=== PATIENT | female | born 1990 | race Caucasian/White ===

== ENCOUNTER → 2022-09-16 15:27 | Outpatient (BNVA) | payer BC, SELFPAY | PROVIDERS: Visit Provider Physician Assistant Surgical ==

== ENCOUNTER 2022-12-24 10:56 | Outpatient (AMB) | payer OTHER, SELFPAY ==
--- NOTE | 2022-12-24 11:04 | A.OFFVIS_ITS ---
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 She heard about our program from online search. Her goal is to lose weight and achieve a healthy lifestyle. She reports first being concerned about her weight about 5 years ago, highest weight to date was 270. Current weight is 270 pounds with a BMI of 46.4. She has tried multiple methods of weight loss including fad diets and OTC diet pills without permanent results. She lives alone. 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 She wakes at:?930 am, and goes to bed at?2 am. Dinner is at 7-8 pm. Working at 3-11 pm Breakfast: spinach fajita AM snack: watermelon Lunch: zucchini and pasta PM snack: skip Dinner: chicken breast on salad After dinner: none Other snacks: popcorn Liquids: 64-80 oz water, 1-2 cans soda per month, no juice Alcohol/marijuana/tobacco intake: no etoh, no cannabis, no tobacco Exercise: little exercise, walking 1 mile outside or workout videos at home. no gym membership or home equipment. Could join a gym. GERD score: 1 JIMENEZ score: 1 ESS score: 7 QOL score: 108 PFSH Surgical History No pertinent past surgical history Family History Mother Multiple sclerosis Father No problems noted. Sister No problems noted. Social History Alcohol intake: current Alcohol intake frequency: holidays/special occasions only Patient Tobacco Use Status: Never used Tobacco Review of Systems Const All systems reviewed & are unremarkable except as noted in HPI and below Physical Exam Vital Signs: Last Vital Signs Temp 97.7 F 12/24/22 11:05 Pulse 72 12/24/22 11:05 BP 173/99 H 12/24/22 11:05 Pulse Ox 97 12/24/22 11:05 Oxygen Delivery Method Room Air 12/24/22 11:05 BMI result Body Mass Index 46.3 Const General: cooperative, healthy appearing and no acute distress Orientation/consciousness: patient oriented x3 HEENT Head: Yes normal to inspection Ears: hearing grossly normal bilaterally General nose exam: Normal external nose present Face and sinus: Yes normal facial exam Eyes General: appearance normal, both eyes and all related structures Resp Effort & Inspection: normal respiratory effort Auscultation: clear to auscultation bilaterally Cardio Rate: regular rate Rhythm: regular rhythm Heart sounds: S1 normal heart sound present and S2 normal heart sound present GI Inspection: Yes normal to inspection, No distended and Yes obesity Palpation (GI): Soft to palpation, nontender and no guarding Auscultation: normal bowel sounds Skin General skin exam: no rashes or lesions noted Neuro General: patient oriented x3 Extrem General: No edema Psych Appearance: grossly normal Mental Status: mental status grossly normal Speech and movement: Normal speech and movement present Affect: normal affect Attitude: cooperative Assessment & Plan Assessment & Plan (1) Morbid obesity: Code(s): E66.01 - Morbid (severe) obesity due to excess calories Plan: This is a?[] yo [] who will start our SWL program to prepare for bariatric surgery.? Blood work, h pylori , CXR, ECG, Abd US and UGI have been ordered. She is being scheduled for RD and BH initial consultations. She will start SWL classes and watch the first three videos before her next appointment. ? Adequate sleep of 7-8 hours per night discussed ? Purchase body composition analyzer scale (Yani cristina or Alanna recommended) and check weight weekly. The best time to do this is first thing in the morning after going to the bathroom. 1. Nutritional counseling: Be sure to careful read the number of scoops per shake Start with 1 Celebrate Rebuild shake ([facility] Exabre or [employer]), (2 scoops in 20 oz low fat unsweetened almond milk) at 1030am- 1230pm 1 protein bar (Celebrate protein bars at [facility] Oxsensis or [employer]) at 230pm-430pm. Dinner at 7pm (10 forks of protein and 10 forks of salad/vegetables). Meal to include lean meat (beef, fish, pork, turkey, chicken), cooked vegetables or a salad with olive oil and/or fruits (berries, pears, apples, kiwi). Avoid salt, breads, potatoes, rice, pasta, desserts. Another bar at 1030pm-1230am. Try to drink 64 oz of water daily and avoid soda and juices. ?2. Each shake would be drunk slowly, like coffee in a period of 2 hours. ?3. Cut each bar in 4 pieces and eat each piece in 30 min ?to make each bar last 2 hours. ?4. I emphasized the importance of measuring accurately the food portion and measure it carefully when serving the food on the plate ?5. The meal portions include 10 full-size forks of meat and 10 full-size forks of salad. You always eat the meat portion but you can replace up to half of the forks of salad/vegetables with rice, potatoes or pasta, or a fruit ?if you like. The less you do it the better weight loss will be. ?6. One full-size fork is what can be scooped on the fork without falling aside and not what can be bit with the fork. Use regular forks like those you find in a typical restaurant. ?7.? Please send me weight measurements as soon as possible and then once a week. Always include your diet and exercise plan. Alternatively come weekly at the office for weight checks and send me the measurements. ?8. Exercise counseling: Begin by watching a stretching for beginners video. Start slowly and begin to stretch your muscles. You should do this before and after each exercise session to prevent injury. Please join [facility] gym near your home. Ask the probation manager or one of the trainers how to use the machines if you are unfamiliar with them. Start elliptical with a resistance of 2. Increase resistance by 1 every 3 min to your most comfortable resistance with a max resistance of 8. Reduce the resistance by 1 every 3 minutes back down to 2 and repeat cycles for 300 calories. Alternatively, start treadmill with a speed of 3.0 and incline of 0, increasing incline by 1 every 3 minutes to the highest comfortable level (max 6 for now) then decrease in the same fashion. Repeat process to a goal of 300 calories. Goal of 2000 calories burned or more weekly. You may also consider use of the stationary bike. The easiest would be to chose the fat-burn or interval training program on the machine and do this until you reach the 300 calorie goal. Alternatively, you can manually adjust the resistance in a similar fashion as mentioned above, (resistance of 2-8 with a goal speed of 12 mph). Tracking calories is essential. 9. Alternatively start walking outside daily, tracking calories with a goal of 300 calories per day, daily. You can download the adam [employer]ent [employer] which can track your time, distance and calories while walking outside. You press start in the adam when you start and then stop when you are finished. 10.? It is important to avoid for at least 18 months postoperatively and it has been discussed at the information session 11. Please get labs, EKG and chest X-Ray within 1 week. 12. Discussed and answered all questions regarding?obtained consent to participate in the [place] [facility]ariatric?Registry. 13. Please follow the diet plan exactly, without any change. If you do not like something about the plan or you feel hungry, you need to communicate with me so I can help you revise the plan. You should not change the plan yourself. Text me at [phone] 14. Goal is to lose at least 12 pounds in the first month 15. Goal is to lose 10% of your weight before surgery, which is about 27 lbs. Ultimate weight goal: 243 lbs before surgery 10:30 - 12:30 Powdered - Celebrate Rebuilt - Chocolate: 2.00 scoop (Mix with 20.29 oz of Mcclellan milk) 25.0 2 14:30 - 16:30 Bar - Zone Perfect - Fudge Nicanor: 1.00 piece 14.0 3 18:30 - 20:30 5.12 oz (10 forkfuls) beef/chicken/lynn/pork/fish/tofu and 5.12 oz (10 forkfuls) of salad. 33.9 4 22:30 - 00:30 [facility]: 1.00 piece 14.0 Patient is morbidly obese and is not considered stable at this time.?I spent a total of 70 minutes reviewing/updating records, examining the patient and counseling the patient on weight management as detailed above. Orders: Orders IRON PROFILE Today E66.01 - Morbid (severe) obesity due to excess calories Complete Blood Count Auto Diff Today E66.01 - Morbid (severe) obesity due to excess calories Vitamin B12 and Folate Today E66.01 - Morbid (severe) obesity due to excess calories Zinc Today E66.01 - Morbid (severe) obesity due to excess calories Comprehensive Met. Panel Today E66.01 - Morbid (severe) obesity due to excess calories Vitamin B1 Today E66.01 - Morbid (severe) obesity due to excess calories Vitamin A Today E66.01 - Morbid (severe) obesity due to excess calories TSH reflex Free T4 Today E66.01 - Morbid (severe) obesity due to excess calories H Pylori Breath Test Today E66.01 - Morbid (severe) obesity due to excess calories Vitamin D 25-OH Total Today E66.01 - Morbid (severe) obesity due to excess calories Hemoglobin A1c Today E66.01 - Morbid (severe) obesity due to excess calories FL upper GI w air Today E66.01 - Morbid (severe) obesity due to excess calories Insulin Today E66.01 - Morbid (severe) obesity due to excess calories Lipid Panel Today E66.01 - Morbid (severe) obesity due to excess calories C Reactive Protein Today E66.01 - Morbid (severe) obesity due to excess calories Ferritin Today E66.01 - Morbid (severe) obesity due to excess calories PTHI Today E66.01 - Morbid (severe) obesity due to excess calories US abdomen comp w elastography Today E66.01 - Morbid (severe) obesity due to excess calories XR chest 2V Today E66.01 - Morbid (severe) obesity due to excess calories ECG 12 lead EKG Today E66.01 - Morbid (severe) obesity due to excess calories Referrals Nutrition/Dietitian Referral E66.01 - Morbid (severe) obesity due to excess calories Behavioral Health Referral E66.01 - Morbid (severe) obesity due to excess calories Coding Level of Care Code New Pt Level 5 (24625) Diagnoses Morbid obesity E66.01 Time Spent (min) 70
[2022-12-24 11:05] VITALS: BP 173/99; PULSE 72; TEMP 36.5; O2SAT 97; BMI 46.3
== END 2022-12-24 12:22 | disposition home or self-care (01) ==
PROVIDERS: Visit Provider Physician Assistant Surgical
DX: E66.01 Morbid (severe) obesity due to excess calories (principal)
CPT/HCPCS: 99205

== ENCOUNTER → 2022-12-24 10:56 | Outpatient (BNVA) | payer OTHER, SELFPAY | PROVIDERS: Visit Provider Physician Assistant Surgical ==